=== PATIENT | female | born 1995 | race Caucasian/White ===

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

== ENCOUNTER 2017-03-18 09:28 | Emergency (ER) | payer MEDICAID, OTHER ==
[2017-03-18 09:42] VITALS: BP 118/85
[2017-03-18] MEDS ORDERED: Albuterol/Ipratropium 3.0-0.5 MG/3 ML Neb Soln NEB ONE (09:55)
[2017-03-18] MEDS ORDERED: methylPREDNISolone Sodium Succinate 125 MG/2 ML SDV IVPUSH ONE (09:55)
[2017-03-18] MEDS ORDERED: Montelukast 10 MG Tab PO ONE (10:06)
--- NOTE | 2017-03-18 10:06 | EDM.PDOC ---
ED HPI GENERAL MEDICAL PROBLEM - General Chief Complaint: Respiratory Problem Stated Complaint: ASTHMA Time Seen by Provider: 03/18/17 09:45 Source of Information: Reports: Patient, Family History Limitations: Reports: No Limitations - History of Present Illness INITIAL COMMENTS - FREE TEXT/NARRATIVE: 21-year-old female with a long history of asthma, is home for the holidays and exposed to animals. She has small amount of wheezing or cold symptoms prior to showing up at home, but her symptoms have markedly worsened over the past 3 days. She also forgot her Singulair which she usually takes daily. She has been without her Singulair for the past 3 days. She has taken numerous nebulizers and metered-dose inhaler doses of albuterol overnight but is still wheezing, uncomfortable, shaky and anxious. No pain. No fevers or chills. Onset: Gradual (Over the past 4 days) Severity: Moderate Associated Symptoms: Reports: Cough, Shortness of Breath. Denies: Fever/Chills , Nausea/Vomiting - Related Data Allergies Allergy/AdvReac Type Severity Reaction Status Date / Time No Known Allergies Allergy Verified 03/18/17 09:42 Home Meds: Home Meds Albuterol Sulfate [Proair Hfa] 8.5 gm IH ASDIRECTED PRN 02/17/14 [History] Albuterol [Proventil Neb Soln] 2.5 mg INH QIDRT PRN 02/17/14 [History] Montelukast Sodium 10 mg PO DAILY 07/22/14 [History] FLUoxetine HCl [Fluoxetine HCl] 20 mg PO DAILY 08/03/14 [History] Past Medical History HEENT History: Reports: Impaired Vision Other HEENT History: Strep Respiratory History: Reports: Asthma Musculoskeletal History: Reports: Fracture Psychiatric History: Reports: Depression Social & Family History - Family History Family Medical History: Unobtainable - Tobacco Use Smoking Status *Q: Never Smoker Second Hand Smoke Exposure: No - Caffeine Use Caffeine Use: Reports: Soda - Alcohol Use Days Per Week of Alcohol Use: 0 - Recreational Drug Use Recreational Drug Use: No ED ROS GENERAL - Review of Systems Review Of Systems: See Below Constitutional: Reports: Malaise. Denies: Fever, Chills HEENT: Denies: Rhinitis, Throat Pain Respiratory: Reports: Shortness of Breath, Wheezing, Cough Cardiovascular: Denies: Chest Pain GI/Abdominal: Denies: Nausea, Vomiting Neurological: Reports: Tremors Psychiatric: Reports: Anxiety ED EXAM, GENERAL - Physical Exam Exam: See Below Exam Limited By: No Limitations General Appearance: Alert, Mild Distress (Audible wheezing with mild increased respiratory effort) Respiratory/Chest: Respiratory Distress (Mild increased respiratory effort, minimal distress.), Wheezing ( Diffuse inspiratory and expiratory wheezing) Cardiovascular: Regular Rate, Rhythm, Tachycardia Neurological: Alert, Oriented Psychiatric: Anxious Skin Exam: Warm, Dry Course - Vital Signs Last Recorded V/S: Last Vital Signs Temp 98.2 F 03/18/17 09:47 Pulse 140 H 03/18/17 09:47 Resp 20 03/18/17 09:47 BP 118/85 03/18/17 09:47 Pulse Ox 93 L 03/18/17 09:47 - Orders/Labs/Meds Orders: Active Orders 24 hr Category Date Time Status RT Aerosol Therapy [RC] ASDIRECTED Care 03/18/17 09:55 Active Meds: Medications Discontinued Medications Generic Name Dose Route Start Last Admin Trade Name Kayden PRN Reason Stop Dose Admin Albuterol/Ipratropium 3 ml 03/18/17 09:55 03/18/17 10:03 Duoneb 3.0-0.5 Mg/3 Ml NEB 03/18/17 09:56 3 ml ONETIME ONE Administration Methylprednisolone Sodium Succinate 125 mg 03/18/17 09:55 03/18/17 10:29 Solu-Medrol IVPUSH 03/18/17 09:56 125 mg ONETIME ONE Administration Montelukast Sodium 10 mg 03/18/17 10:06 03/18/17 10:28 Singulair PO 03/18/17 10:07 10 mg ONETIME ONE Administration - Re-Assessments/Exams Free Text/Narrative Re-Assessment/Exam: 03/18/17 10:25 Patient was given a DuoNeb which improved her O2 saturations 93-96%, did decrease some of the objective wheezing. There was some subjective improvement in her symptoms as well. Patient will be placed on prednisone 60 mg daily for the next 5 days, and she needs to discuss getting on long-term inhaled steroids with her primary care as soon as possible. Departure - Departure Time of Disposition: 10:38 Disposition: Home, Self-Care 01 Condition: Fair Clinical Impression: Exacerbation of asthma Qualifiers: Asthma severity: moderate Asthma persistence: persistent Qualified Code(s): J45.41 - Moderate persistent asthma with (acute) exacerbation - Discharge Information Instructions: Asthma, Adult Referrals: Elmer Ibanez [facility] [Primary Care Provider] - Forms: ED Department Discharge Care Plan Goals: Continue with nebulizers as needed, and take 60 mg of prednisone daily with food for the next 5 days. Return to ER at any time if you feel you are worsening despite treatment. It's also important to resume Singulair as soon as possible and start inhaled steroids for prevention - My Orders Last 24 Hours: My Active Orders 03/18/17 09:55 RT Aerosol Therapy [RC] ASDIRECTED - Assessment/Plan Last 24 Hours: My Active Orders 03/18/17 09:55 RT Aerosol Therapy [RC] ASDIRECTED
== END 2017-03-18 10:38 | disposition home or self-care (01) ==
LOC: JP.ED 09:28
DX: J45.41 Moderate persistent asthma with (acute) exacerbation (principal); F32.9 Major depressive disorder, single episode, unspecified; Z79.899 Other long term (current) drug therapy
CPT/HCPCS: 94640; 96374; 99285; A9270; J2930; J7620